=== PATIENT | male | born 1985 | race Caucasian/White ===

== ENCOUNTER 2021-01-19 16:32 | Emergency (ER) | payer OTHER ==
[~2021-01-19] VITALS: Ht 188 cm; Wt 113.4 kg
== END 2021-01-19 18:16 | disposition home or self-care (01) ==
LOC: ER 16:32
DX: M79.644 Pain in right finger(s) (principal); Z53.21 Procedure and treatment not carried out due to patient leaving prior to being seen by health care provider
CPT/HCPCS: 99282

== ENCOUNTER 2022-02-06 04:08 | Emergency (ER) | payer MEDICARE, OTHER ==
[~2022-02-06] VITALS: Ht 188 cm; Wt 79.4 kg
[2022-02-06] MEDS ORDERED: Bactrim Ds Tab1 EACH PO (04:26)
[2022-02-06] MEDS ORDERED: CEPH500 PO (04:26)
== END 2022-02-06 04:34 | disposition home or self-care (01) ==
LOC: ER 04:08
DX: L03.012 Cellulitis of left finger (principal); F17.200 Nicotine dependence, unspecified, uncomplicated
CPT/HCPCS: A9270